=== PATIENT | male | born 1995 | race Caucasian/White ===

== ENCOUNTER → 2018-01-08 | Outpatient (CLI) | payer BC ==
--- NOTE | 2018-01-08 11:27 | US ---
EXAM DESCRIPTION: Renal Arteries CLINICAL HISTORY: 22 years Male, ELEVATED BP WITHOUT A DIAGNOSIS OF HTN COMPARISON: None. TECHNIQUE: Sonographic 2D and Doppler images of the kidneys were acquired bilaterally and submitted for review. FINDINGS: RIGHT KIDNEY Size: 10 x 5 x 5 cm Echogenicity: Normal Parenchymal thickness and contour: Normal Pelvicalyceal dilatation: None Calculi: None Cysts: None Masses:None Doppler peak systolic: OstiumNot seen Proximal: 100 cm/s Mid: 88 cm/s Distal: 44 cm/s Resistance index: 0.5 to 0.7 Main renal vein: The main renal vein is patent and demonstrates a normal waveform. LEFT KIDNEY Size: 11 x 6 x 5.0 cm Echogenicity: Normal Parenchymal thickness and contour: Normal Pelvicalyceal dilatation: None Calculi: None Cysts: None Masses:None Doppler peak systolic: Ostium: Not seen. Proximal: 80cm/s Mid: 76cm/s Distal: 52cm/sNot seen Resistance index: 0.5 to 0.7 Main renal vein: The main renal vein is patent and demonstrates a normal waveform. Other findings Aorta: Peak systolic velocity: 95 Cm/s,otherwise, unremarkable IMPRESSION: 1. Both kidneys appear grossly unremarkable with normal waveforms and peak systolic velocities are within normal limits. Electronically signed by: Paul Cohen MD 01/08/2018 11:26 AM CDT
== END ==
LOC: US 09:07
PROVIDERS: ATTEND Family Medicine
DX: R03.0 Elevated blood-pressure reading, without diagnosis of hypertension (principal); R94.5 Abnormal results of liver function studies